=== PATIENT | male | born 1975 | race Caucasian/White ===

== ENCOUNTER 2017-10-31 19:41 | Emergency (ER) | payer OTHER ==
[2017-10-31 20:10] VITALS: BP 115/77; PULSE 75; TEMP 98.3; BMI 26.6
--- NOTE | 2017-10-31 20:10 | PDOC ---
Rapid Medical Evaluation Time Seen by Provider: 10/31/17 20:08 Medical Evaluation: Allergies Allergy/AdvReac Type Severity Reaction Status Date / Time No Known Allergies Allergy Verified 10/25/17 01:54 10/31/17 20:08 The patient presents with a chief complaint of: Exposed to rabid racoon blood by mouth 09/27/17. Just found out today that the racoon was rabid. Had the rabies series two years ago. Presents for a booster. Did not get bit by the racoon. Will need the immunoglobin today I have performed a brief in-person evaluation of this patient; Pertinent physical exam findings: ambulatory, in no respiratory distress I have ordered the following: Nothing The patient will proceed to the ED for further evaluation. Discharge Disposition - Referrals Referrals: Isaias Mcclendon [Primary Care Provider] - - Patient Instructions - Post Discharge Activity
[2017-10-31] MEDS ORDERED: RABIES IMMUNE GLOBULIN 300 UNITS/2 ML VIAL IM ONE (21:19)
--- NOTE | 2017-10-31 21:23 | PDOC ---
History of Present Illness - General Chief Complaint: Revisit,Rabies Injection Stated Complaint: RABIES VACCINATION Time Seen by Provider: 10/31/17 20:08 History Source: Patient Exam Limitations: No Limitations - History of Present Illness Initial Comments: CHIEF COMPLAINT: 42 y/o afebrile male, YPD here for a rabies vaccine. 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 He was not bitten but the animals blood splattered into his mouth. He received a call from the [facility] stating the raccoon tested positive for rabies and he should come in for the immunoglobulin shot. He states he does not need the series. Vital signs on arrival are within normal limits. REVIEW OF SYSTEMS: GENERAL/CONSTITUTIONAL: No fever/chills. No weakness. No weight change. HEAD, EYES, EARS, NOSE AND THROAT: No change in vision. No ear pain or discharge. No sore throat. CARDIOVASCULAR: No chest pain or shortness of breath. RESPIRATORY: No cough, wheezing, or hemoptysis. GASTROINTESTINAL: No abd pain, nausea, vomiting, diarrhea. GENITOURINARY: No dysuria, frequency, or change in urination. MUSCULOSKELETAL: No joint or muscle swelling or pain. No neck or back pain. SKIN: No rash or easy bruising. NEUROLOGIC: No headache, vertigo, loss of consciousness, or loss of sensation. PHYSICAL EXAM: GENERAL: The patient is awake, alert, and fully oriented, in no acute distress. HEAD: Normal with no signs of trauma. ENT: Pupils equal, round and reactive to light, extraocular movements intact, sclera anicteric, conjunctiva clear. Neck supple. LUNGS: Clear to auscultation bilaterally. Normal excursion. No respiratory distress or use of accessory muscles. CV: RRR, S1/S2, no MRG. Cap refill < 2 sec. ABDOMEN: Soft, non-distended, non-tender even to deep palpation, no hepatomegaly or splenomegaly, no masses. EXTREMITIES: Normal range of motion, no edema. NEUROLOGICAL: Normal speech, normal gait. CN II-XII grossly intact. PSYCH: Normal mood, normal affect. SKIN: Warm, dry, normal turgor, no rashes or lesions noted. Past History - Past Medical History Allergies/Adverse Reactions: Allergies Allergy/AdvReac Type Severity Reaction Status Date / Time No Known Allergies Allergy Verified 10/25/17 01:54 Home Medications: Ambulatory Orders No Home Medications 0 dose .ROUTE UTDICT 03/01/12 COPD: No - Suicide/Smoking/Psychosocial Hx Smoking Status: No Smoking History: Never smoked Have you smoked in the past 12 months: No Number of Cigarettes Smoked Daily: 0 Hx Alcohol Use: No Drug/Substance Use Hx: No *Physical Exam - Vital Signs Last Vital Signs Temp Pulse Resp BP Pulse Ox 98.3 F 75 18 115/77 96 10/31/17 20:09 10/31/17 20:09 10/31/17 20:09 10/31/17 20:09 10/31/17 20:09 Medical Decision Making - Medical Decision Making A/P: 42 y/o male here for rabies immunoglobulin. Plan is as follows: rabies immunoglobulin. Patient tolerated injections well. Rabies paperwork filled out. Will discharge to home. *DC/Admit/Observation/Transfer Diagnosis at time of Disposition: Exposure to blood, Rabies exposure - Discharge Dispostion Disposition: HOME Condition at time of disposition: Good - Referrals Referrals: Isaias Mcclendon [Primary Care Provider] - - Patient Instructions Printed Discharge Instructions: DI for Rabies Vaccine - Post Discharge Activity
[2017-10-31] MEDS ORDERED: RABIES IMMUNE GLOBULIN 300 UNITS/2 ML VIAL ONE (21:27)
== END 2017-10-31 21:50 | disposition home or self-care (01) ==
LOC: JER 19:41 → JERFT 19:41
PROC: 3E0234Z Introduction of Serum, Toxoid and Vaccine into Muscle, Percutaneous Approach (ICD-10-PCS; principal; 2017-10-31)
DX: Z20.3 Contact with and (suspected) exposure to rabies (principal); Y35.891A Legal intervention involving other specified means, law enforcement official injured, initial encounter; Y93.89 Activity, other specified; Y92.89 Other specified places as the place of occurrence of the external cause; Y99.0 Civilian activity done for income or pay
CPT/HCPCS: 90375; 99281-25